=== PATIENT | female | born 2000 | race Hispanic/Latino ===

== ENCOUNTER 2023-11-09 20:39 | Day surgery (SDC) | payer OTHER ==
[2023-11-09 21:13] VITALS: BMI 26.9
[2023-11-09 23:11] LABS: Fetal Membranes Rupture No Membranes Rupture (No Rupture)
== END 2023-11-10 00:01 | disposition home or self-care (01) ==
LOC: CSHLD/OP 20:39
PROVIDERS: ATTEND Family Medicine
DX: O47.1 False labor at or after 37 completed weeks of gestation (principal); Z79.899 Other long term (current) drug therapy; Z3A.38 38 weeks gestation of pregnancy
CPT/HCPCS: 84112; 99284